=== PATIENT | female | born 1965 | race Caucasian/White ===

== ENCOUNTER 2017-05-27 20:03 | Emergency (ER) | payer OTHER, SELFPAY ==
[~2017-05-27] VITALS: Ht 160 cm; Wt 105.0 kg
[~2017-05-27 20:03] MED LIST: ADVI200C5 PO; COUM1TAB19 PO; MAGO400T PO; POTASSIUM PHOSPHATE PO; SODIUM PHOSPHATE PO
[2017-05-27] MEDS ORDERED: KETOROLAC 30 MG/ML VIAL (J1885) IM ONE (23:30)
[2017-05-27] MEDS ORDERED: PRED20TA PO (23:51)
[2017-05-27] MEDS ORDERED: IBUP-1022 PO (23:52)
[2017-05-28 00:02] VITALS: BP 112/61
--- NOTE | 2017-05-28 08:46 | REP ---
Clinical: Pain centered at the first metatarsal bone. Technique: AP, lateral views of the right foot. Comparison: 04/24/2006. Findings: Age-related changes are appreciated primarily involving the tarsometatarsal region. Increased sclerosis at the base of the first proximal phalanx suggesting minimal early degenerative change at the metatarsophalangeal joint. No acute fracture dislocation. Impression: Mild age-related changes primarily involving the tarsometatarsal joints and first metatarsophalangeal joint. Signed by Ethan Munson MD 05/28/2017 08:37 A
== END 2017-05-28 00:19 | disposition home or self-care (01) ==
LOC: M ED 20:03
DX: M77.41 Metatarsalgia, right foot (principal); F17.200 Nicotine dependence, unspecified, uncomplicated
CPT/HCPCS: 73620; 96374; 99282; J1885

== ENCOUNTER 2017-08-15 22:23 | Emergency (ER) | payer OTHER, SELFPAY ==
[~2017-08-15] VITALS: Ht 160 cm; Wt 47.7 kg
[~2017-08-15 22:23] MED LIST changes: +IBUP-1022 PO; +PRED20TA PO
[2017-08-15] MEDS ORDERED: IBUPROFEN 600 MG TAB PO ONE (23:45)
[2017-08-16] MEDS ORDERED: NAPR500T3 PO (00:17)
[2017-08-16] MEDS ORDERED: PRED10TA2 PO (00:17)
[2017-08-16] MEDS ORDERED: NORCO, ANEXSIA 5/325MG TABLET (HYDROcodone/ACETAMINOPHEN) PO ONE (00:30)
[2017-08-16 00:32] VITALS: BP 120/72
--- NOTE | 2017-08-16 09:12 | REP ---
Right wrist series: Four views. History: Pain. Comparison right wrist radiographs are from 08/18/2005. Findings: Subcortical cyst formation is again visible in the distal navicular bone. There is mild osteoarthritis at the radiocarpal articulation with spurring. Mild spurring is seen at the first carpometacarpal articulation as well. No fracture or subluxation is seen. Impression: Mild osteoarthritic changes. No acute bony abnormality. Signed by Jamaal Isaac MD 08/16/2017 10:12 A
== END 2017-08-16 00:33 | disposition home or self-care (01) ==
LOC: M ED 22:23
DX: M25.531 Pain in right wrist (principal); G56.01 Carpal tunnel syndrome, right upper limb; F17.200 Nicotine dependence, unspecified, uncomplicated; M77.8 Other enthesopathies, not elsewhere classified

== ENCOUNTER 2018-06-24 19:42 | Emergency (ER) | payer OTHER, SELFPAY ==
[2018-06-24] MEDS: ACETAMINOPHEN 325 MG TAB PO (20:13)
== END 2018-06-24 20:42 | disposition home or self-care (01) ==
LOC: M ED 19:42
DX: S60.211A Contusion of right wrist, initial encounter (principal); S00.83XA Contusion of other part of head, initial encounter; W01.198A Fall on same level from slipping, tripping and stumbling with subsequent striking against other object, initial encounter; Y92.098 Other place in other non-institutional residence as the place of occurrence of the external cause; Z79.899 Other long term (current) drug therapy
CPT/HCPCS: 73110

== ENCOUNTER → 2019-03-11 | Outpatient (CLI) | payer MEDICAID ==
[~2019-03-11] MED LIST changes: +NAPR-885 PO; +PRED10TA2 PO; +VITA50005 PO
[2019-03-11 14:27] LABS: HEMATOCRIT 37.6 % (36.0-47.0); HEMOGLOBIN 12.8 g/dl (12.0-15.5); MEAN CORPUSCULAR HEMOGLOBIN 31.3 pg (27.0-33.0); MEAN CORPUSCULAR VOLUME 91.9 fl (80.0-96.0); PLATELET COUNT, AUTOMATED 266 10^3/uL (150-450); RED BLOOD COUNT 4.09 10^6/uL (4.00-5.40); WHITE BLOOD COUNT 5.9 10^3/uL (4.0-10.0)
[2019-03-11 14:39] LABS: INR 1.02; PROTHROMBIN TIME 13.5 SECONDS (12.1-14.4)
[2019-03-11 14:40] LABS: PARTIAL THROMBOPLASTIN TIME 30.8 SECONDS (25.4-37.6)
[2019-03-11 14:48] LABS: ALBUMIN 3.6 GM/DL (3.2-5.2); ALT/SGPT 14 U/L (12-78); BILIRUBIN,TOTAL 0.4 MG/DL (0.2-1.0); BLOOD UREA NITROGEN 11 MG/DL (7-18); CARBON DIOXIDE LEVEL 30 MEQ/L (21-32); CHLORIDE LEVEL 106 MEQ/L (98-107); CREATININE FOR GFR 0.92 MG/DL (0.55-1.30); GLOMERULAR FILTRATION RATE > 60.0 (>51); GLUCOSE, FASTING 91 MG/DL (70-100); POTASSIUM SERUM 3.7 MEQ/L (3.5-5.1); SODIUM LEVEL 140 MEQ/L (136-145); TOTAL PROTEIN 6.8 GM/DL (6.4-8.2)
== END ==
LOC: M LAB 13:24
PROVIDERS: ATTEND Internal Medicine
DX: Z01.818 Encounter for other preprocedural examination (principal)

== ENCOUNTER 2019-03-13 08:31 | Day surgery (SDC) | payer MEDICAID, OTHER ==
[~2019-03-13] VITALS: Ht 160 cm; Wt 47.2 kg
[~2019-03-13 08:31] MED LIST changes: +ACETAMINOPHEN 325 MG TAB PO PRN; +BSS with VANC/TOB/EPI for EYE CASES IR ONE; +CYCLOPENTOLATE 2% OPHTH SOLN 2ML BTL OD ONE; +HEALON DUET PRO(HEALON 10MG/ML 0.55ML & HEALON ENDOCOAT 30MG/ML 0.85ML) As Ordered ONE; +LIDOCAINE 1% SDV 5 ML VIAL As Ordered ONE; +LIDOCAINE 3.5 % 1ML OPHTH TOPICAL GEL OU ONE; +MIDAZOLAM INJ 2 MG/2 ML VIAL (J2250) As Ordered ONE; +MOXIFLOXACIN IN BSS 0.25MG/0.25ML INTRACAMERAL INJ (OR EYE ONLY)(J2280) As Ordered ONE; +OFLOXACIN 0.3 % (OCUFLOX) OPTH SOL 5ML OD ONE; +PHENYLEPHRINE 2.5% OPHTH SOL 2ML OD ONE; +PHENYLEPHRINE HCL 10 % OPHTH. SOL 5ML OD PRN; +POVIDONE-IODINE 5% OPHTH PREP SOL 30ML As Ordered ONE; +TRIAMCINOLONE PRES FR 40 MG/ML 1ML(TRIESENCE)(OR EYE ONLY)(J3300 PER 1MG) As Ordered ONE; +TROPICAMIDE 1% OPHTH SOLN 2ML OD ONE; +fentaNYL 100 MCG/2 ML INJECTION (J3010) As Ordered ONE
[2019-03-13] MEDS ORDERED: AcetaZOLAMIDE 500 MG ER CAP As Ordered ONE (09:48)
[2019-03-13 09:56] VITALS: BP 84/49
[2019-03-13] MEDS ORDERED: AcetaZOLAMIDE 500 MG ER CAP PO ONE (10:00)
[2019-03-13] MEDS ORDERED: TRIMETHOBENZAMIDE 300 MG CAP PO PRN (10:00)
== END 2019-03-13 10:08 | disposition home or self-care (01) ==
LOC: M SDC 08:31
PROVIDERS: ATTEND Ophthalmology
DX: H25.9 Unspecified age-related cataract (principal); F17.210 Nicotine dependence, cigarettes, uncomplicated; Z86.718 Personal history of other venous thrombosis and embolism
CPT/HCPCS: 66984; 92015; J2250; J2280; J3010; J3300

== ENCOUNTER 2019-03-20 08:24 | Day surgery (SDC) | payer MEDICAID, OTHER ==
[~2019-03-20] VITALS: Ht 160 cm; Wt 46.6 kg
[~2019-03-20 08:24] MED LIST changes: -ACETAMINOPHEN 325 MG TAB PO PRN; -CYCLOPENTOLATE 2% OPHTH SOLN 2ML BTL OD ONE; +CYCLOPENTOLATE 2% OPHTH SOLN 2ML BTL OS ONE; -OFLOXACIN 0.3 % (OCUFLOX) OPTH SOL 5ML OD ONE; +OFLOXACIN 0.3 % (OCUFLOX) OPTH SOL 5ML OS ONE; -PHENYLEPHRINE 2.5% OPHTH SOL 2ML OD ONE; +PHENYLEPHRINE 2.5% OPHTH SOL 2ML OS ONE; -PHENYLEPHRINE HCL 10 % OPHTH. SOL 5ML OD PRN; +PHENYLEPHRINE HCL 10 % OPHTH. SOL 5ML OS PRN; -TROPICAMIDE 1% OPHTH SOLN 2ML OD ONE; +TROPICAMIDE 1% OPHTH SOLN 2ML OS ONE
[2019-03-20] MEDS ORDERED: PROPOFOL 200 MG/20 ML VIAL As Ordered ONE (11:14)
[2019-03-20 12:20] VITALS: BP 80/47
== END 2019-03-20 12:35 | disposition home or self-care (01) ==
LOC: M SDC 08:24
PROVIDERS: ATTEND Ophthalmology
DX: H25.9 Unspecified age-related cataract (principal); Z86.718 Personal history of other venous thrombosis and embolism; F17.210 Nicotine dependence, cigarettes, uncomplicated
CPT/HCPCS: 66984; 92015; J2250; J2280; J3010; J3300

== ENCOUNTER 2019-09-09 13:27 | Outpatient (RCR) | payer MEDICAID, OTHER ==
[~2019-09-09 13:27] MED LIST changes: -BSS with VANC/TOB/EPI for EYE CASES IR ONE; -CYCLOPENTOLATE 2% OPHTH SOLN 2ML BTL OS ONE; -HEALON DUET PRO(HEALON 10MG/ML 0.55ML & HEALON ENDOCOAT 30MG/ML 0.85ML) As Ordered ONE; -LIDOCAINE 1% SDV 5 ML VIAL As Ordered ONE; -LIDOCAINE 3.5 % 1ML OPHTH TOPICAL GEL OU ONE; -MIDAZOLAM INJ 2 MG/2 ML VIAL (J2250) As Ordered ONE; -MOXIFLOXACIN IN BSS 0.25MG/0.25ML INTRACAMERAL INJ (OR EYE ONLY)(J2280) As Ordered ONE; -OFLOXACIN 0.3 % (OCUFLOX) OPTH SOL 5ML OS ONE; -PHENYLEPHRINE 2.5% OPHTH SOL 2ML OS ONE; -PHENYLEPHRINE HCL 10 % OPHTH. SOL 5ML OS PRN; -POVIDONE-IODINE 5% OPHTH PREP SOL 30ML As Ordered ONE; -TRIAMCINOLONE PRES FR 40 MG/ML 1ML(TRIESENCE)(OR EYE ONLY)(J3300 PER 1MG) As Ordered ONE; -TROPICAMIDE 1% OPHTH SOLN 2ML OS ONE; -fentaNYL 100 MCG/2 ML INJECTION (J3010) As Ordered ONE
== END 2019-09-24 ==
LOC: M PT 13:27
PROVIDERS: ATTEND Internal Medicine
DX: M25.512 Pain in left shoulder (principal)

== ENCOUNTER → 2019-10-31 | Outpatient (CLI) | payer OTHER ==
--- NOTE | 2019-10-31 09:11 | REP ---
Left shoulder MRI study without contrast: History: Left shoulder pain. Rule out rotator cuff tear. Impingement syndrome left shoulder. No comparison radiographs. Technique: Axial, oblique coronal and oblique sagittal imaging planes were utilized. T1 and T2-weighted scans were included with and without fat saturation. MRI findings: The left glenohumeral and acromioclavicular joints are normally aligned. There is mild osteoarthritic hypertrophy at the AC joint. Subtle marrow edema is seen in the distal clavicle at the AC joint. There is minimal inferolateral acromion process spurring. A small subacromial subdeltoid bursal effusion is present. No significant glenohumeral effusion is seen. There is subcortical cyst formation in the superomedial and superolateral humeral head. There are extensive tendinitis/tendinosis changes in the distal supraspinatus tendon as well as the mid supraspinatus tendon and in the distal subscapularis tendons. Partial-thickness synovial side supraspinatus tear suspected. No complete tear seen. There is some fraying of the posterior labrum on T2-weighted axial images. No other evidence of labral tear is seen. The infraspinatus tendon is unremarkable. The biceps tendon appears somewhat attenuated which may imply biceps tendinosis as well. Periarticular skeletal muscle signal intensity and contours are normal. Impression: Advanced tendinitis/tendinosis in the supraspinatus and subscapularis tendons without full-thickness cuff tear. Fraying of the posterior labral cartilage. Subcortical cyst formation in the humeral head. Mild AC joint hypertrophy. Subacromial subdeltoid bursal effusion. Electronically Signed by Jamaal Isaac MD 11/05/2019 07:52 P
== END ==
LOC: M RAD 07:11
PROVIDERS: ATTEND Orthopaedic Surgery Hand Surgery
DX: M75.42 Impingement syndrome of left shoulder (principal); M25.412 Effusion, left shoulder; M75.82 Other shoulder lesions, left shoulder; M85.612 Other cyst of bone, left shoulder

== ENCOUNTER → 2020-08-24 | Outpatient (CLI) | payer SELFPAY | LOC: M LABSMTC 13:28 | PROVIDERS: ATTEND Pediatrics | DX: Z20.828 Contact with and (suspected) exposure to other viral communicable diseases (principal) ==

== ENCOUNTER → 2020-12-17 | Outpatient (CLI) | payer OTHER | LOC: M LABSMTC 10:43 | PROVIDERS: ATTEND Anesthesiology | DX: Z01.812 Encounter for preprocedural laboratory examination (principal); Z20.822 Contact with and (suspected) exposure to COVID-19 ==

== ENCOUNTER 2020-12-22 10:01 | Day surgery (SDC) | payer OTHER ==
[~2020-12-22] VITALS: Ht 160 cm; Wt 56.7 kg
[~2020-12-22 10:01] MED LIST changes: +LIDOCAINE 2% 100MG/5ML SDV (FOR ANES.) As Ordered ONE; +NS 1,000 ML IV ONE; +propofoL 200 MG/20 ML VIAL As Ordered ONE
[2020-12-22] MEDS ORDERED: ePHEDrine SULFATE 25 MG/5 ML(5MG/ML) SYRINGE As Ordered ONE (11:17)
--- NOTE | 2020-12-22 12:12 | ROOR ---
Patient Name: Yumiko Pierce Procedure Date: 12/22/2020 11:06 AM Date of : 1965 Age: 55 Room: [facility] Gender: Female Note Status: Finalized Procedure: Colonoscopy Indications: Screening for colorectal malignant neoplasm Providers: Serge Burt MD Referring MD: FORD ARGUETA MD Requesting Provider: Medicines: Monitored Anesthesia Care Complications: No immediate complications. Procedure: Pre-Anesthesia Assessment: - Prior to the procedure, a History and Physical was performed, and patient medications and allergies were reviewed. The patient is competent. The risks and benefits of the procedure and the sedation options and risks were discussed with the patient. All questions were answered and informed consent was obtained. Patient identification and proposed procedure were verified by the physician, the nurse and the anesthesiologist in the procedure room. Mental Status Examination: alert and oriented. Airway Examination: normal oropharyngeal airway and neck mobility. Respiratory Examination: clear to auscultation. CV Examination: normal. Prophylactic Antibiotics: The patient does not require prophylactic antibiotics. Prior Anticoagulants: The patient has taken no previous anticoagulant or antiplatelet agents. ASA Grade Assessment: II - A patient with mild systemic disease. After reviewing the risks and benefits, the patient was deemed in satisfactory condition to undergo the procedure. The anesthesia plan was to use monitored anesthesia care (MAC). Immediately prior to administration of medications, the patient was re-assessed for adequacy to receive sedatives. The heart rate, respiratory rate, oxygen saturations, blood pressure, adequacy of pulmonary ventilation, and response to care were monitored throughout the procedure. The physical status of the patient was re-assessed after the procedure. The Colonoscope was introduced through the anus and advanced to the terminal ileum, with identification of the appendiceal orifice and IC valve. The colonoscopy was performed without difficulty. The patient tolerated the procedure well. The quality of the bowel preparation was good. The terminal ileum, ileocecal valve, appendiceal orifice, and rectum were photographed. Scope insertion time was 2 minutes. Scope withdrawal time was 8 minutes. The total duration of the procedure was 12 minutes. Findings: The perianal and digital rectal examinations were normal. The terminal ileum appeared normal. Four sessile polyps were found in the sigmoid colon, transverse colon and ascending colon. The polyps were 5 to 10 mm in size. These polyps were removed with a hot snare and a cold snare. Resection and retrieval were complete. Verification of patient identification for the specimen was done by the physician and nurse using the patient's name and date. A few small-mouthed diverticula were found in the sigmoid colon. There was no evidence of diverticular bleeding. Non-bleeding external and internal hemorrhoids were found during retroflexion. The hemorrhoids were medium-sized. Impression: - The examined portion of the ileum was normal. - Four 5 to 10 mm polyps in the sigmoid colon, in the transverse colon and in the ascending colon, removed with a hot snare and removed with a cold snare. Resected and retrieved. - Mild diverticulosis in the sigmoid colon. There was no evidence of diverticular bleeding. - Non-bleeding external and internal hemorrhoids. Recommendation: - Patient has a contact number available for emergencies. The signs and symptoms of potential delayed complications were discussed with the patient. Return to normal activities tomorrow. Written discharge instructions were provided to the patient. - High fiber diet. - Continue present medications. - Await pathology results. - Use fiber, for example Citrucel, Fibercon, Konsyl or Metamucil. - Repeat colonoscopy in 3 - 5 years for surveillance based on pathology results. - Telephone GI clinic for pathology results in 2 weeks. - Return to primary care physician. Procedure Code(s): --- Professional --- 00698, Colonoscopy, flexible; with removal of tumor(s), polyp(s), or other lesion(s) by snare technique Diagnosis Code(s): --- Professional --- Z12.11, Encounter for screening for malignant neoplasm of colon K64.8, Other hemorrhoids K63.5, Polyp of colon K57.30, Diverticulosis of large intestine without perforation or abscess without bleeding CPT copyright 2019 [employer]. All rights reserved. The codes documented in this report are preliminary and upon construction code administrator review may be revised to meet current compliance requirements. Serge Burt MD Serge Burt MD 12/22/2020 12:11:48 PM Electronically signed by Serge Burt MD Number of Addenda: 0 Note Initiated On: 12/22/2020 11:06 AM Estimated Blood Loss: Estimated blood loss was minimal.
[2020-12-22 12:14] VITALS: BP 102/69
== END 2020-12-22 12:18 | disposition home or self-care (01) ==
LOC: M OPP 10:01
PROVIDERS: ATTEND Internal Medicine Gastroenterology
DX: Z12.11 Encounter for screening for malignant neoplasm of colon (principal); D12.6 Benign neoplasm of colon, unspecified; K57.30 Diverticulosis of large intestine without perforation or abscess without bleeding; K64.8 Other hemorrhoids; K21.9 Gastro-esophageal reflux disease without esophagitis; F17.210 Nicotine dependence, cigarettes, uncomplicated; Z86.718 Personal history of other venous thrombosis and embolism; Z82.49 Family history of ischemic heart disease and other diseases of the circulatory system; Z80.1 Family history of malignant neoplasm of trachea, bronchus and lung; Z82.3 Family history of stroke

== ENCOUNTER → 2021-02-06 | Outpatient (CLI) | payer OTHER ==
[~2021-02-06] MED LIST changes: -LIDOCAINE 2% 100MG/5ML SDV (FOR ANES.) As Ordered ONE; -NS 1,000 ML IV ONE; -propofoL 200 MG/20 ML VIAL As Ordered ONE
--- NOTE | 2021-02-09 11:29 | REP ---
INDICATION: PAIN IN LT THIGH. COMPARISON: Radiographs [facility] 01/12/2021. TECHNIQUE: Axial CT left femur performed with sagittal and coronal reconstruction images. FINDINGS: A sclerotic bone lesion is seen in the very distal aspect of the femoral shaft, with multilobulated margins. This measures 9 mm in diameter. The appearance is consistent with a chondroid matrix in this appears to represent an enchondroma. A similar lesion is seen centrally in the tibial plateau. No other bone lesion is seen. There is no fracture or dislocation. The hip joint and knee joint are not significantly narrowed. There is a moderate effusion at the knee. There also appears to be a Yadav's cyst in the medial popliteal fossa with an approximate diameter of 1.8 cm. No other gross soft tissue abnormality is seen. IMPRESSION: Sclerotic lesion in the very distal aspect of the femoral shaft is most consistent with an enchondroma. A similar lesion is seen in the proximal tibia. Moderate knee joint effusion. 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 <Electronically signed by Kevin Loza > 02/09/21 [id number]
== END ==
LOC: M RAD 10:31
PROVIDERS: ATTEND Orthopaedic Surgery
DX: M89.8X5 Other specified disorders of bone, thigh (principal); M25.462 Effusion, left knee; M71.22 Synovial cyst of popliteal space [Baker], left knee

== ENCOUNTER → 2021-08-04 | Outpatient (CLI) | payer OTHER ==
[~2021-08-04] MED LIST changes: +PROHANCE 279.3MG/ML 15ML VIAL ONE
--- NOTE | 2021-08-04 09:51 | REP ---
INDICATION: BENIGN NEOPLASM OF LONG BONES OF LT LOWER LIMB. COMPARISON: MRI of 12/08/2006, CT of 02/06/2021, and plain film examination of 01/12/2021. TECHNIQUE: Sagittal spin-echo proton density, T2 STIR and T2 FLASH. Coronal spin-echo proton density and fat suppressed proton density. Axial fat suppressed proton density. Additionally, post gadolinium enhanced images were obtained. 12 cc of ProHance was administered intravenously. FINDINGS: There is grade 3 signal change seen in the posterior horn of the medial meniscus. The anterior horn is within normal limits. There is extensive grade 1 signal change seen in the anterior horn of the lateral meniscus. The posterior horn is within normal limits the anterior and posterior cruciate ligaments are intact. The quadriceps and patellar tendons are intact the medial and lateral collateral ligaments are intact. There is a gap between the medial meniscus and medial collateral ligament with T2 hyper signal seen filling the gap. The medial and lateral patellar retinacula are intact. There is a 6.1 x 1.8 x 2.8 cm sized Yadav's cyst. There is mild to moderate thinning and irregularity of all articular cartilages particularly affecting the lateral compartment. There is a slight joint effusion and parapatellar plica. There is a 4 mm sized subchondral cyst in the anteromedial femoral condyle. There is a 1 cm sized mixed signal lesion in the distal femoral diaphysis and a similar appearing lesion in the proximal tibial metaphysis which measures 1.6 cm. These were present on the prior exam. IMPRESSION: 1. Known distal femoral and proximal tibial enchondromas. 2. The posterior horn of the medial meniscus is torn. 3. Extensive meniscal degenerative changes anterior horn lateral meniscus. 4. Medial meniscocapsular separation. 5. Slight joint effusion with parapatellar plica. 6. Chondromalacia as described above. 7. Yadav's cyst as described above. 8. Slight subchondral cystic degenerative change in the anterior medial femoral condyle. <Electronically signed by Chaz Noriega > 08/04/21 [id number]
== END ==
LOC: M PLAIMG 08:01
PROVIDERS: ATTEND Orthopaedic Surgery Sports Medicine
DX: D16.22 Benign neoplasm of long bones of left lower limb (principal)

== ENCOUNTER → 2021-11-29 | Outpatient (CLI) | payer OTHER ==
[~2021-11-29] MED LIST changes: -PROHANCE 279.3MG/ML 15ML VIAL ONE
[2021-11-29 16:40] LABS: HEMATOCRIT 35.5 % (36.0-47.0); HEMOGLOBIN 11.6 g/dl (12.0-15.5); MEAN CORPUSCULAR HEMOGLOBIN 29.7 pg (27.0-33.0); MEAN CORPUSCULAR HGB CONC 32.7 g/dl (32.0-36.5); PLATELET COUNT, AUTOMATED 328 10^3/uL (150-450)
[2021-11-29 16:54] LABS: ALT/SGPT 16 U/L (12-78); BILIRUBIN,TOTAL 0.3 MG/DL (0.2-1.0); BLOOD UREA NITROGEN 10 MG/DL (7-18); CALCIUM LEVEL 8.6 MG/DL (8.5-10.1); CARBON DIOXIDE LEVEL 30 MEQ/L (21-32); CHLORIDE LEVEL 107 MEQ/L (98-107); CHOLESTEROL LEVEL 176 MG/DL (<200); CREATININE FOR GFR 0.69 MG/DL (0.55-1.30); GLOMERULAR FILTRATION RATE > 60.0 (>51); GLUCOSE, FASTING 78 MG/DL (70-100); HDL CHOLESTEROL 44 MG/DL (>40); LDL CHOLESTEROL 116 MG/DL (<100); NON-HDL-C 132 MG/DL; POTASSIUM SERUM 4.2 MEQ/L (3.5-5.1); SODIUM LEVEL 139 MEQ/L (136-145); TOTAL PROTEIN 6.3 GM/DL (6.4-8.2); TRIGLYCERIDES LEVEL 79 MG/DL (<150)
[2021-11-29 17:16] LABS: HEMOGLOBIN A1c 5.3 %
== END ==
LOC: M LAB 15:59
PROVIDERS: ATTEND Internal Medicine
DX: R94.6 Abnormal results of thyroid function studies (principal)

== ENCOUNTER → 2022-08-30 | Outpatient (CLI) | payer OTHER | LOC: M RAD 09:59 | PROVIDERS: ATTEND Orthopaedic Surgery | DX: M89.9 Disorder of bone, unspecified (principal); Q78.4 Enchondromatosis | CPT/HCPCS: 78306; A9503 ==